=== PATIENT | female | born 1995 | race Caucasian/White ===

== ENCOUNTER 2019-05-06 09:19 | Emergency (ER) | payer SELFPAY ==
[2019-05-06 09:25] VITALS: BP 143/79
[2019-05-06] MEDS ORDERED: DEXAMETHASONE SOD PHOS INJ 10 MG/1 ML VIAL IM ONE (09:59)
--- NOTE | 2019-05-06 10:01 | ER Document Report ---
HPI - HPI Time Seen by Provider: 05/06/19 09:42 Pain Level: 1 Context: Patient is a 24-year-old female presents emerged department with chief complaint of bug bites. Patient reports 2 days ago she developed bites to her right upper buttocks and hands. Patient states since then she has been bit multiple times to the legs and torso. Patient reports this seems to be worse at night. Patient reports her boyfriend did sleep in the same bed and does not have any symptoms or bites on him. Patient reports she had similar bites in the past and that these are bedbugs. Patient reports she has not seen any obvious bedbugs. Patient reports she has used [id number] hydrocortisone cream as well as Benadryl. Patient denies fever or difficulty breathing. Past Medical History - General Information source: Patient - Social History Smoking Status: Current Every Day Smoker Chew tobacco use (# tins/day): No Frequency of alcohol use: Social Drug Abuse: None Lives with: Family Family History: None Patient has suicidal ideation: No Patient has homicidal ideation: No - Past Medical History Cardiac Medical History: Reports: None Pulmonary Medical History: Reports: None EENT Medical History: Reports: None Neurological Medical History: Reports: None Endocrine Medical History: Reports: None Renal/ Medical History: Reports: None Malignancy Medical History: Reports: None GI Medical History: Reports: None Musculoskeletal Medical History: Reports None Skin Medical History: Reports None Psychiatric Medical History: Reports: None Traumatic Medical History: Reports: None Infectious Medical History: Reports: None Surgical Hx: Negative Vertical Provider Document - CONSTITUTIONAL Agree With Documented VS: Yes Exam Limitations: No Limitations General Appearance: No Apparent Distress - HEENT HEENT: Atraumatic, Normocephalic, PERRLA - NECK Neck: Normal Inspection - RESPIRATORY Respiratory: Breath Sounds Normal, No Respiratory Distress - CARDIOVASCULAR Cardiovascular: Regular Rate, Regular Rhythm - GI/ABDOMEN Gastrointestinal: Abdomen Soft, Abdomen Non-Tender, Normal Bowel Sounds - MUSCULOSKELETAL/EXTREMETIES Musculoskeletal/Extremeties: FROM - NEURO Level of Consciousness: Awake, Alert, Appropriate - DERM Integumentary: Rash Notes: Erythematous whelps noted throughout the body specifically on the right upper buttocks, lower extremities, upper extremities. There is no involvement of the face. Course - Re-evaluation Re-evalutation: 05/06/19 10:30 Patient symptoms are consistent with a bite. These could be bedbugs. I did inform the patient that she needs to ultimately get an small wind energy installer to check her for bugs. I did inform her to wash all of her close, bedding, pillows and hot water and use high heat in the dryer. - Vital Signs Vital signs: Temp Pulse Resp BP Pulse Ox 98.0 F 76 16 143/79 H 99 05/06/19 09:24 05/06/19 09:24 05/06/19 09:24 05/06/19 09:24 05/06/19 09:24 Discharge - Discharge Clinical Impression: Rash, Hives, Urticaria of unknown origin Condition: Stable Disposition: HOME, SELF-CARE Additional Instructions: Today was in the emergency department for a possible bug bites. It is unknown what is causing these reactions but it does appear that you are getting bit by something. You have been given a shot of Decadron which is a steroid. This will stay in your system for 3 days. Please continue taking the Benadryl and the hydrocortisone cream. I would either consult with a small wind energy installer and wash all of your close and belongings in hot water and high heat in the dryer. Insect Bites You have been bitten by an insect. These bites can cause two types of swelling: an initial swelling due to insect saliva or injected poison, and a late reaction due to your body's allergic reaction. This initial local reaction may be uncomfortable but is not dangerous. Often there's an itchy "hive" at the bite location. This is treated with anti histamines, cold compresses, and resting the affected body part. The later reaction often develops about the second day. The entire area becomes very swollen, red, itchy, and tender. This is an allergic reaction. Your body is attacking the leftover insect saliva or venom. This type of allergy is unpleasant, but not dangerous. We treat this swelling with cortisone-type medicine. Sometimes we use antibiotics if we're worried about infection. Antihistamines help with the itch. If you develop a fever, chills, a red streak, or swollen glands in the area of the bite, infection may be starting. Return at once.
== END 2019-05-06 10:19 | disposition home or self-care (01) ==
LOC: ER 09:19
DX: R21 Rash and other nonspecific skin eruption (principal); L50.9 Urticaria, unspecified
CPT/HCPCS: 99282; 96372; J1100